=== PATIENT | female | born 1945 | race Caucasian/White ===

== ENCOUNTER → 2017-01-18 | Outpatient (CLI) | payer MEDICARE, BC ==
[~2017-01-18] MED LIST: ASPIRIN81 M2 PO; BUMEX1 MG PO; CITALOPRAM HBR40 MG PO; GLUCOPHAGE500 MG PO; LIPITOR40 MG PO; NIFEDIPINE ER90 M3 PO; PIOGLITAZONE15 MG PO; POTASSIUM CHLO20 ME1 PO; PROTONIX PO; ZESTRIL40 MG PO
--- NOTE | ~2017-01-18 | US24 ---
[facility] A Service of [facility] & [facility] RADIOLOGY TEXT RESULTS PATIENT: CHANTAL REICH LOCATION: [facility] : 45 UNIT #: [id number] AGE: [address]: Deion Waldron MD SEX: F ORDER DR: [id number] [facility] [address] [place], [place] [address] [id number] O MR#: [id number] Acc #: [id number] NAME: CHANTAL REICH : 1945 SEX: F STUDY DATE/TIME: 01/18/2017 11:13 UNIT: [facility] ROOM: STUDY DESCRIPTION: US Breast Unilateral Attending Physician: Deion Waldron M.D. Referring Physician: Deion Waldron M.D. Ordering Physician: Deion Waldron M.D. Primary Care Physician: Deion Waldron M.D. MEDICAL IMAGING REPORT This report is preliminary unless electronic signature is present EXAM Right breast ultrasound. HISTORY Right breast nodule. FINDINGS Please refer to the diagnostic mammogram for details on the ultrasound. The nodule seen on the prior study has resolved. IMPRESSION Negative right breast ultrasound. BIRADS: 1 Negative Dictated by... Cesar Pelaez M.D. THIS IS AN ELECTRONICALLY VERIFIED REPORT Cesar Pelaez M.D. at 01/18/2017 3:14 PM BRIGITTE/reuben TD: 01/18/2017 14:03 JOB #: [id number] MEDICAL IMAGING REPORT Page 1 of 1 COPY
--- NOTE | ~2017-01-18 | MY8 ---
[facility] A Service of [facility] & [facility] RADIOLOGY TEXT RESULTS PATIENT: CHANTAL REICH LOCATION: [facility] : 45 UNIT #: [id number] AGE: [address]: Deion Waldron MD SEX: F ORDER DR: [id number] [facility] [address] [place], [place] [address] [id number] O MR#: [id number] Acc #: [id number] NAME: CHANTAL REICH. : 1945 SEX: F STUDY DATE/TIME: 01/18/2017 10:52 UNIT: [facility] ROOM: STUDY DESCRIPTION: MY Mammogram Dx Dig Rt Attending Physician: Deion Waldron M.D. Referring Physician: Deion Waldron M.D. Ordering Physician: Deion Waldron M.D. Primary Care Physician: Deion Waldron M.D. MEDICAL IMAGING REPORT This report is preliminary unless electronic signature is present EXAM 1. Digital right diagnostic mammogram with CAD. 2. Diagnostic right breast ultrasound. HISTORY 71-year female with a 6-month follow up for abnormal mammogram. No personal history breast cancer. FINDINGS Right mammogram: CC, spot compression CC, MLO, spot compression MLO, MLO views of the right breast were obtained. The background breast parenchyma consists of scattered fibroglandular densities. There are some benign calcifications in the right breast. No suspicious mass, microcalcification, architectural distortion. The 7 mm nodule in the lateral right breast has resolved. Exam is compared to prior mammograms dated 07/20/2016 and 07/10/2016. Given the prior findings, diagnostic of breast ultrasound was performed. Right breast ultrasound. Gayle-scale and color Doppler ultrasound of the right breast was performed. The complex cyst has resolved. No new or suspicious lesions are identified. IMPRESSION Negative mammogram. The small nodule in the lateral right breast has resolved. Patients over the age of 40 are entered into a reminder system with target due date for the next mammogram. A result letter will also be sent to the patient. BIRADS: [address] [facility] A Service of [facility] & [facility] RADIOLOGY TEXT RESULTS PATIENT: CHANTAL RECIH LOCATION: [facility] #: [id number] : 45 UNIT #: [id number] AGE: [address]: Deion Waldron MD SEX: F ORDER DR: RECOMMENDATIONS Annual screening mammogram with the next mammogram due in June 2017. Dictated by... Cesar Pelaez M.D. THIS IS AN ELECTRONICALLY VERIFIED REPORT Cesar Pelaez M.D. at 01/18/2017 3:14 PM BRIGITTE/lucas TD: 01/18/2017 13:55 JOB #: [id number] MEDICAL IMAGING REPORT Page 1 of 1 COPY
== END | disposition home or self-care (01) ==
LOC: CMAM 10:22
DX: N60.01 Solitary cyst of right breast (principal)
CPT/HCPCS: 76641; G0206